=== PATIENT | male | born 1930 | race Caucasian/White ===

== ENCOUNTER → 2016-09-26 | Outpatient (CLI) | payer MEDICARE ==
--- NOTE | ~2016-09-26 | MR113 ---
[facility] A Service of [facility] & [facility] RADIOLOGY TEXT RESULTS PATIENT: JOY LOREDO LOCATION: [facility] : [birth year] UNIT #: [id number] AGE: [address]: Charissa Vaughan MD SEX: M ORDER DR: [id number] [address] [address] [id number] O MR#: [id number] Acc #: [id number] NAME: JOY LOREDO : 1930 SEX: M STUDY DATE/TIME: 09/26/2016 10:58 UNIT: [facility] ROOM: STUDY DESCRIPTION: MR Lumbar Wo Contrast Attending Physician: Charissa Vaughan M.D. Referring Physician: Charissa Vaughan M.D. Ordering Physician: Charissa Vaughan M.D. Primary Care Physician: Charissa Vaughan M.D. MRI CENTER REPORT This report is preliminary unless electronic signature is present. EXAM MRI of the lumbar spine without contrast dated 09/26/2016 COMPARISON Plain films lumbar spine dated 01/11/2015. HISTORY Chronic low back pain for years. For the last 2-3 months, pain is extending into the left lower extremity with radiculopathy. Left foot numbness. FINDINGS Multisequence, multiplanar imaging of the lumbar spine was obtained without contrast. Vertebral body heights are preserved. There is mild retrolisthesis of S1 with respect to L5. Conus terminates at L1. Signal of conus and cauda equina are within normal limits. Evaluation for pars defects at L5 is limited. There are no prior CT studies available for comparison. Pre- and paravertebral soft tissues and the retroperitoneum are unremarkable. L1-2: Concentric disc bulge with superimposed right ziibjcjvy-wm-xhoiuguwygpkrw broad-based protrusion with mild inferior bilateral neural foraminal narrowing. Minimal bilateral facet changes are noted with borderline size to mild canal stenosis. L2-3: Concentric disc bulge with superimposed bilateral smbiudfcu-qj-mhviocffzhfeea disc prominence, particularly in the right suspicious for a protrusion in the right. Mild inferior bilateral neural foraminal narrowing is seen with mild bilateral facet changes and mild canal stenosis. L3-4: Moderate disc bulge with superimposed right STS. [facility] A Service of [facility] RADIOLOGY TEXT RESULTS PATIENT: JOY LOREDO LOCATION: [facility] : [birth year] UNIT #: [id number] AGE: [address]: Charissa Vaughan MD SEX: M ORDER DR: [id number] broad-based protrusion. Mild bilateral facet changes are seen with mild inferior bilateral neural foraminal narrowing and opyv-jl-qbaaorpn canal stenosis. Mild right lateral recess stenosis. L4-5: Moderate disc bulge with superimposed mvvsk-uc-oarz subarticular broad-based protrusion is seen measuring 1 x 2 cm. There is an extruded component in the left subarticular region with a height of 1 cm. Severe left lateral recess stenosis is noted with impingement of left L5 nerve root. Mild right lateral recess stenosis and mild bilateral neural foraminal narrowing are present with raum-fj-rfbbkxts canal stenosis. L5-S1: Concentric disc bulge with tiny central protrusion. No canal stenosis or neural foraminal narrowing. IMPRESSION 1. 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 Correlate with appropriate radiculopathy. Associated mild to moderate canal stenosis and mild inferior bilateral neural foraminal narrowing are also seen. 2. Refer above. Dictated by... Red Jorge M.D. THIS IS AN ELECTRONICALLY VERIFIED REPORT Red Jorge M.D. at 10/01/2016 11:34 AM CPR/psc TD: 09/27/2016 04:59 JOB #: [id number] MRI CENTER REPORT Page 1 of 1
== END | disposition home or self-care (01) ==
LOC: SMRI 10:31
DX: M51.16 Intervertebral disc disorders with radiculopathy, lumbar region (principal); M48.06 Spinal stenosis, lumbar region; M51.17 Intervertebral disc disorders with radiculopathy, lumbosacral region
CPT/HCPCS: 72148